=== PATIENT | male | born 1980 | race Caucasian/White ===

== ENCOUNTER 2019-10-03 11:07 | Emergency (ER) | payer SELFPAY ==
--- NOTE | 2019-10-03 11:58 | ER Document Report ---
ED Medical Screen (RME) - General Chief Complaint: Leg Pain Stated Complaint: LOWER LEG PAIN/LEFT Time Seen by Provider: 10/03/19 11:52 Notes: HPI: 39-year-old male presenting to the emergency department for evaluation of right calf discomfort. States it is been progressively worsening over the last 2 days no swelling. He was concerned about a blood clot. Patient recently drove from [place] to this area over the last 2 to 3 days. No chest pain no shortness of breath PHYSICAL EXAMINATION: No visible swelling to the right lower extremity. The patient's right calf is soft. No reproducible pain on palpation. Dorsalis pedis posterior tibial pulses are present in the right lower extremity. Negative Homans sign I have greeted and performed a rapid initial assessment of this patient. A comprehensive ED assessment and evaluation of the patient, analysis of test results and completion of medical decision making process will be conducted by an additional ED providers. - Related Data Allergies/Adverse Reactions: No Known Allergies Allergy (Unverified 10/03/19 11:52) Physical Exam - Vital signs Vitals: Temp Pulse Resp BP Pulse Ox 98.5 F 62 16 114/73 100 10/03/19 11:20 10/03/19 11:20 10/03/19 11:20 10/03/19 11:20 10/03/19 11:20 Course - Vital Signs Vital signs: Temp Pulse Resp BP Pulse Ox 98.5 F 62 16 114/73 100 10/03/19 11:20 10/03/19 11:20 10/03/19 11:20 10/03/19 11:20 10/03/19 11:20
--- NOTE | 2019-10-03 14:18 | ER Document Report ---
Entered by RAHAT LUEVANO SCRIBE 10/03/19 1357 Acting as scribe for:SHERRY GONZALEZ MD ED Extremity Problem, Lower - General Chief Complaint: Leg Pain Stated Complaint: LOWER LEG PAIN/LEFT Time Seen by Provider: 10/03/19 11:52 Mode of Arrival: Ambulatory Information source: Patient Notes: This 39 year old male patient presents to the emergency department today with complaints of right lower extremity pain. Patient mentions that he has recently been traveling a lot, sitting down in a sedentary position. Patient mentions that on 09/28 he drove from [place] to [place] which is 7 hours, the next day he drove about 3 hours, and then drove here to [place]. Patient mentions he first noticed this right calf/lower extremity pain after the [address]. Patient mentions that in June he drove to the airport, flew to [place], and then drove around [place] and he felt a similar but less severe pain. 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 Lives with: Family Family History: Reviewed & Not Pertinent - Medical History Medical History: Negative Surgical Hx: Negative Review of Systems - Review of Systems Constitutional: No symptoms reported EENT: No symptoms reported Cardiovascular: No symptoms reported Respiratory: No symptoms reported Gastrointestinal: No symptoms reported Genitourinary: No symptoms reported Male Genitourinary: No symptoms reported Musculoskeletal: See HPI, Other - RLE pain Skin: No symptoms reported Hematologic/Lymphatic: No symptoms reported Neurological/Psychological: No symptoms reported -: Yes All other systems reviewed and negative Physical Exam - Vital signs Vitals: Temp Pulse Resp BP Pulse Ox 98.5 F 62 16 114/73 100 10/03/19 11:20 10/03/19 11:20 10/03/19 11:20 10/03/19 11:20 10/03/19 11:20 - Notes Notes: Physical Exam: General: Alert, appears well. HEENT: Normocephalic. Atraumatic. PERRL. Extraocular movements intact. Oropharynx clear. Neck: Supple. Non-tender. Respiratory: No respiratory distress. Clear and equal breath sounds bilaterally. Cardiovascular: Regular rate and rhythm. Abdominal: Normal Inspection. Non-tender. No distension. Normal Bowel Sounds. Back: No gross abnormalities. Extremities: Moves all four extremities. Upper extremities: Normal inspection. Normal ROM. Lower extremities: Right lateral and posterior lateral right calf pain when patient puts legs out straight and attempts to sit up. When right leg is straighted and foot is rotated medially there is pain over the anterior tibialis muscle. There is no redness, swelling, or tenderness to palpation. Neurological: Normal cognition. AAOx4. Normal speech. Psychological: Normal affect. Normal Mood. Skin: Warm. Dry. Normal color. Course - Re-evaluation Re-evalutation: 10/03/19 15:38 Patient's d-dimer is undetectable. Given the physical exam does not suggest DVT, but does suggest muscle strain, we will not be doing a venous Doppler at this time. - Vital Signs Vital signs: Temp Pulse Resp BP Pulse Ox 98.5 F 62 16 114/73 100 10/03/19 11:20 10/03/19 11:20 10/03/19 11:20 10/03/19 11:20 10/03/19 11:20 - Laboratory Result Diagrams: 10/03/19 14:19 10/03/19 14:19 Laboratory results interpreted by me: 10/03/19 14:19 Carbon Dioxide 31 H Total Bilirubin 1.7 H Discharge - Discharge Clinical Impression: Right leg pain Condition: Stable Disposition: HOME, SELF-CARE Additional Instructions: Muscle Strain: You most likely have strained the muscles in your lateral and posterior lateral right lower leg. This often occurs with strenuous exertion, or during an injury that suddenly stretches the muscle, or with a repetitive motion such as the long drive you recently completed. X-rays cannot show a muscle strain. X-rays are taken only if symptoms suggest that a fracture could be present. The usual treatment of a muscle strain is rest. Call the doctor immediately if pain or swelling becomes severe, or if numbness or discoloration develop. Limit walking for few days. Elevate your legs when you are sitting around. Watch for any swelling that might occur. Take ibuprofen or Aleve for pain if needed. Follow-up with a local primary care provider or return the emergency room if y our symptoms worsen. RETURN TO THE EMERGENCY ROOM IF ANY NEW OR WORSENING SYMPTOMS. I personally performed the services described in the documentation, reviewed and edited the documentation which was dictated to the scribe in my presence, and it accurately records my words and actions.
[2019-10-03 14:35] LABS: ABSOLUTE EOSINOPHILS # (AUTO) 0.3 10^3/uL (0.0-0.6); ABSOLUTE LYMPHOCYTES (AUTO) 2.1 10^3/uL (0.5-4.7); ABSOLUTE MONOCYTES (AUTO) 0.6 10^3/uL (0.1-1.4); ABSOLUTE NEUT (AUTO) 3.2 10^3/uL (1.7-8.2); BASOPHILS % (AUTO) 0.8 % (0-2); EOSINOPHILS % (AUTO) 4.6 % (0-6); HEMATOCRIT 44.2 % (37.9-51.0); HEMOGLOBIN 15.3 g/dL (13.5-17.0); LYMPHOCYTES % (AUTO) 33.6 % (13-45); MEAN CORPUSCULAR HEMOGLOBIN 30.6 pg (27.0-33.4); MEAN CORPUSCULAR HGB CONC 34.5 g/dL (32.0-36.0); MEAN CORPUSCULAR VOLUME 89 fl (80-97); MONOCYTES % (AUTO) 9.7 % (3-13); PLATELET COUNT 250 10^3/uL (150-450); RED BLOOD COUNT 4.99 10^6/uL (4.35-5.55); RED CELL DISTRIBUTION WIDTH 12.9 % (11.5-14.0); SEGMENTED NEUTROPHILS % (AUTO) 51.3 % (42-78); TOTAL CELLS COUNTED % (AUTO) 100 %; WHITE BLOOD COUNT 6.2 10^3/uL (4.0-10.5)
[2019-10-03 14:55] LABS: ALBUMIN 4.5 g/dL (3.5-5.0); ALKALINE PHOSPHATASE 54 U/L (38-126); ANION GAP 6 (5-19); ASPARTATE AMINO TRANSFERASE 23 U/L (17-59); BILIRUBIN,TOTAL 1.7 mg/dL (0.2-1.3); BLOOD UREA NITROGEN 16 mg/dL (7-20); CALCIUM 9.6 mg/dL (8.4-10.2); CARBON DIOXIDE 31 mmol/L (22-30); CHLORIDE 101 mmol/L (98-107); CREATINE KINASE 86 U/L (55-170); GLUCOSE 92 mg/dL (75-110); POTASSIUM 4.6 mmol/L (3.6-5.0); TOTAL PROTEIN 7.4 g/dL (6.3-8.2)
[2019-10-03 16:03] VITALS: BP 120/70
== END 2019-10-03 16:02 | disposition home or self-care (01) ==
LOC: ER 11:07
DX: M79.661 Pain in right lower leg (principal)
CPT/HCPCS: 36415; 80053; 82550; 85025; 85379; 99283